=== PATIENT | female | born 1955 | race Caucasian/White ===

== ENCOUNTER 2016-10-08 22:56 | Emergency (ER) | payer OTHER | END 2016-10-09 04:16 | disposition home or self-care (01) | LOC: ER 22:56 | DX: S70.01XA Contusion of right hip, initial encounter (principal); I10 Essential (primary) hypertension; F17.200 Nicotine dependence, unspecified, uncomplicated; W19.XXXA Unspecified fall, initial encounter | CPT/HCPCS: 72100; 73502-RT; 73552-RT; 73700-LT; 96374; 99284 ==